=== PATIENT | female | born 1990 | race Asian ===

== ENCOUNTER 2020-09-16 10:28 | Observation (INO) | payer MEDICAID ==
[~2020-09-16] VITALS: Ht 157.5 cm; Wt 93.0 kg
[2020-09-21] MEDS ORDERED: PNV1TABL76 PO (03:50)
== END 2020-09-16 13:05 | disposition home or self-care (01) ==
LOC: 8 EST LDRP 10:28
PROVIDERS: ADMIT Specialist; ATTEND Specialist
DX: O26.893 Other specified pregnancy related conditions, third trimester (principal); R10.9 Unspecified abdominal pain; Z3A.40 40 weeks gestation of pregnancy
CPT/HCPCS: 59025; 76815; 76818; G0378; 99281